=== PATIENT | male | born 1935 | race Caucasian/White ===

== ENCOUNTER → 2018-04-29 | Outpatient (CLI) | payer OTHER ==
[~2018-04-29] MED LIST: AMARYL4 MG PO; ASPIR 8181 MG PO; CARDURA4 MG PO; GABAPENTIN 100100 MG PO; HYDROCHLOROTHIA25 M2 PO; JANUMET 50-1,01 EACH PO; MAGOX 400400 MG PO; METFORMIN HCL500 MG PO; PEPCID20 MG PO; SIMVASTATIN40 MG PO; TRESIBA FL100 UNIT/1 SUBQ; VITAMIN B-12500 MCG PO; VITAMIN D3400 UNIT PO
--- NOTE | ~2018-04-29 | EKG ---
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 : 1935 Requested By: Phill Bethea Order Number: [id number] MD: Shaquille Huffman Measurements Intervals [place] Rate: 70 P: [place]: QRS: -23 QRSD: 84 T: 2 QT: 408 QTc: 441 Interpretive Statements Sinus rhythm Ventricular premature complex Inferior infarct, old Nonspecific T wave abnormality No previous ECG available for comparison Electronically Signed On 04-29-2018 16:43:21 CDT by Shaquille Huffman [email or web address] <ELECTRONICALLY SIGNED> By: Shaquille Huffman MD, [facility] 04/29/18 1643 0945 0945 Shaquille Huffman MD, FACC /EPI
== END | disposition home or self-care (01) ==
LOC: LITH 09:16
DX: N20.1 Calculus of ureter (principal); I10 Essential (primary) hypertension; E11.9 Type 2 diabetes mellitus without complications; I25.2 Old myocardial infarction; I25.10 Atherosclerotic heart disease of native coronary artery without angina pectoris; E78.00 Pure hypercholesterolemia, unspecified; K21.9 Gastro-esophageal reflux disease without esophagitis; Z87.19 Personal history of other diseases of the digestive system; Z95.1 Presence of aortocoronary bypass graft; Z95.5 Presence of coronary angioplasty implant and graft; Z85.828 Personal history of other malignant neoplasm of skin; Z79.899 Other long term (current) drug therapy; Z98.890 Other specified postprocedural states